=== PATIENT | female | born 1995 | race Caucasian/White ===

== ENCOUNTER → 2016-11-12 | Outpatient (CLI) | payer BC ==
[~2016-11-12] MED LIST: AUGMENTIN600 MG/5 M; DILAUDID2 MG PO; GLUCOPHAGE500 MG PO; NO MEDICATIONS
--- NOTE | ~2016-11-12 | CT57 ---
[facility] A Service of [facility] & [facility] RADIOLOGY TEXT RESULTS PATIENT: DAREN VARGHESE LOCATION: [facility] [place] : [birth year] UNIT #: [id number] AGE: [address]: Maria Elena Mon MD SEX: F ORDER DR: [id number] [address] [id number] O MR#: [id number] Acc #: [id number] NAME: DAREN VARGHESE : 1995 SEX: F STUDY DATE/TIME: 11/12/2016 13:35 UNIT: [facility] [place] ROOM: STUDY DESCRIPTION: CT Chest Wo Cont Attending Physician: Maria Elena Mon M.D. Referring Physician: Maria Elena Mon M.D. Ordering Physician: Maria Elena Mon M.D. Primary Care Physician: Maria Elena Mon M.D. MEDICAL IMAGING REPORT This report is preliminary unless electronic signature is present. 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 TECHNIQUE CT chest performed without contrast. Coronal and sagittal reformatted images were obtained. This CT exam was performed with one or more of the following radiation dose reduction techniques: automatic control, adjustment of mA and/or kV according to patient size, and iterative reconstruction. COMPARISON 05/05/2016 FINDINGS There are scattered bilateral pulmonary nodules. These are unchanged. The dominant nodules 1.2 cm in the left upper lobe. There is a small triangular density in the posterior left upper lobe adjacent to the major fissure on image 25 which is also unchanged. No new nodules. The previously noted enlarged mediastinal lymph nodes are all smaller. Index node adjacent to the cavoatrial junction in the mediastinum measures 2.2 x 2.3 cm. Previously this was 3.4 x 3.1 cm. Adenopathy adjacent to the aorta on image 39 is much smaller measuring 1.3 x 0.8 cm. Previously it was 2.6 x 1.6 cm. Subcarinal lymph node is also smaller. There is no pleural effusion. Limited imaging in the upper abdomen is unremarkable. The bone windows are unremarkable. IMPRESSION 1. Interval decrease in size of mediastinal lymphadenopathy. 2. Stable bilateral pulmonary nodules. [facility]. [facility] A Service of [facility] & [facility] RADIOLOGY TEXT RESULTS PATIENT: DAREN VARGHESE LOCATION: [facility] [place] : [birth year] UNIT #: [id number] AGE: [address]: Maria Elena Mon MD SEX: F ORDER DR: Dictated by... Cruz Cleary M.D. THIS IS AN ELECTRONICALLY VERIFIED REPORT Cruz Cleary M.D. at 11/15/2016 8:32 AM ROSHNI/araceli TD: 11/12/2016 23:43 JOB #: [id number] MEDICAL IMAGING REPORT
== END | disposition home or self-care (01) ==
LOC: SCT 13:33
DX: B39.2 Pulmonary histoplasmosis capsulati, unspecified (principal); R59.1 Generalized enlarged lymph nodes; R91.8 Other nonspecific abnormal finding of lung field
CPT/HCPCS: 71250

== ENCOUNTER 2017-03-30 22:09 | Emergency (ER) | payer BC ==
[~2017-03-30] VITALS: Ht 167.6 cm; Wt 163.3 kg
[~2017-03-30 22:09] MED LIST changes: -NO MEDICATIONS
[2017-03-30] MEDS ORDERED: NO MEDICATIONS (22:15)
== END 2017-03-30 23:14 | disposition left against medical advice (07) ==
LOC: SED 22:09
DX: R05 Cough (principal); M54.5 Low back pain; G89.29 Other chronic pain
CPT/HCPCS: 99283